=== PATIENT | female | born 1950 | race African-American/Black ===

== ENCOUNTER 2017-05-06 23:00 | Inpatient (IN) | payer MEDICARE, MEDICAID ==
[~2017-05-06] VITALS: Ht 167.6 cm; Wt 85.7 kg
[~2017-05-06 23:00] MED LIST: Bisacodyl PO; CLOP75TA33 PO; FURO40TA5 PO; Hydrochlorothiazide PO; NIFE60TA64 PO; OMEP20CA10 PO; POTA20TA82 PO; SIMV40TA2 PO
[2017-05-07] MEDS ORDERED: SODIUM CHLORIDE 0.9% 1,000 ML IV ONE (00:44)
[2017-05-07] MEDS ORDERED: ONDANSETRON HCL 4MG/2ML VIAL IV STA (00:44)
[2017-05-07] MEDS ORDERED: MORPHINE SULFATE 4 MG/ML CPJ (NOT FOR IM USE) IV STA (00:44)
[2017-05-07 01:15] LABS: EOSINOPHILS % 1.9 % (0.0-5.0); HEMATOCRIT. 26.2 % (36.0-48.0); HEMOGLOBIN. 7.9 g/dL (12.0-16.0); LYMPHOCYTES % 31.2 % (20.0-50.0); MEAN CORPUSCULAR HEMOGLOBIN 19.8 pg (28.0-32.0); MEAN PLATELET VOLUME 8.6 fl (7.4-10.4); MONOCYTES % 8.8 % (2.0-8.0); NEUTROPHILS % 57.1 % (40.0-76.0); PLATELET 138 x1000/uL (130-400); RED BLOOD CELL COUNT 3.97 mill/uL (4.2-5.4); RED CELL DISTRIBUTION WIDTH 18.8 % (11.6-14.6)
[2017-05-07 01:24] LABS: CARBON DIOXIDE 20 mEq/L (21-32); CHLORIDE 107 mEq/L (98-107)
[2017-05-07 01:28] LABS: PLATELET ESTIMATE NORMAL
[2017-05-07 02:12] LABS: CLARITY URINE CLEAR (CLEAR); COLOR URINE YELLOW (YELLOW); GLUCOSE URINE 3+ (NEGATIVE); KETONES URINE NEGATIVE (NEGATIVE); LEUKOCYTE ESTERASE URINE TRACE (NEGATIVE); NITRITE URINE NEGATIVE (NEGATIVE); OCCULT BLOOD URINE NEGATIVE (NEGATIVE); PH URINE 5.5 (4.5-8.0); PROTEIN URINE NEGATIVE (NEGATIVE); UROBILINOGEN URINE 0.2 E.U./dL (0.2-1.0)
[2017-05-07] MEDS ORDERED: ONDANSETRON HCL 4MG/2ML VIAL IV ONE ×2 (03:30→08:30)
[2017-05-07] MEDS ORDERED: MORPHINE SULFATE 4 MG/ML CPJ (NOT FOR IM USE) IV ONE ×2 (03:30→08:30)
[2017-05-07] MEDS ORDERED: DEXTROSE 50% WATER 50ML SYRINGE IV ONE (07:45)
[2017-05-07] MEDS ORDERED: DEXT 5% WATER 500 ML IV ONE (07:45)
[2017-05-07 09:45] VITALS: BP 138/68
[2017-05-07] MEDS ORDERED: DIPH25CA83 PO (10:11)
[2017-05-07] MEDS ORDERED: ACETAMINOPHEN 325MG TABLET PO PRN (10:15)
[2017-05-07 11:52] LABS: BASOPHILS % 0.7 % (0.0-2.0); EOSINOPHILS % 1.5 % (0.0-5.0); HEMATOCRIT. 27.5 % (36.0-48.0); HEMOGLOBIN. 8.3 g/dL (12.0-16.0); LYMPHOCYTES % 32.9 % (20.0-50.0); MEAN CORPUSCULAR HEMOGLOBIN 19.8 pg (28.0-32.0); MEAN CORPUSCULAR VOLUME 65.7 fL (81.0-99.0); MEAN PLATELET VOLUME 8.5 fl (7.4-10.4); MONOCYTES % 8.6 % (2.0-8.0); NEUTROPHILS % 56.3 % (40.0-76.0); PLATELET 140 x1000/uL (130-400); RED BLOOD CELL COUNT 4.18 mill/uL (4.2-5.4); RED CELL DISTRIBUTION WIDTH 19.1 % (11.6-14.6)
[2017-05-07 12:00] VITALS: BP 139/72
[2017-05-07 12:08] LABS: CARBON DIOXIDE 22 mEq/L (21-32); CHLORIDE 109 mEq/L (98-107); HDL CHOLESTEROL 43 mg/dL (40-59); LDL CHOLESTEROL 73 mg/dL (5-100)
[2017-05-07] MEDS ORDERED: DEXTROSE 50% WATER 50ML SYRINGE IV PRN (13:15)
[2017-05-07 16:00] VITALS: BP 148/80
[2017-05-07] MEDS: MORPHINE SULFATE 2 MG/ML CPJ (NOT FOR IM USE) IV PRN ×2 (16:34→21:51)
[2017-05-07] MEDS: BLOOD SUGAR DIAGNOSTIC STRIP TEST SCH ×2 (16:41→21:43)
[2017-05-07] MEDS: INSULIN LISPRO 100 UNITS/ML SUBCUT SCH ×2 (16:54→22:00)
[2017-05-07 20:00] VITALS: BP 137/98
[2017-05-07] MEDS: SODIUM CHLORIDE 0.9% 1,000 ML IV SCH (21:52)
[2017-05-08] VITALS: BP 162/89
[2017-05-08] MEDS: ONDANSETRON HCL 4MG/2ML VIAL IV PRN ×2 (01:50→19:37)
[2017-05-08] MEDS: MORPHINE SULFATE 2 MG/ML CPJ (NOT FOR IM USE) IV PRN ×3 (01:52→19:38)
[2017-05-08 04:00] VITALS: BP 153/72
[2017-05-08] MEDS: BLOOD SUGAR DIAGNOSTIC STRIP TEST SCH ×4 (06:08→21:00)
[2017-05-08] MEDS: INSULIN LISPRO 100 UNITS/ML SUBCUT SCH ×5 (07:50→22:19)
[2017-05-08 07:57] LABS: HEMOGLOBIN. 8.3 g/dL (12.0-16.0); MEAN CORPUSCULAR HEMOGLOBIN 19.5 pg (28.0-32.0); MEAN CORPUSCULAR VOLUME 65.9 fL (81.0-99.0); MEAN PLATELET VOLUME 8.5 fl (7.4-10.4); PLATELET 126 x1000/uL (130-400); RED BLOOD CELL COUNT 4.25 mill/uL (4.2-5.4); RED CELL DISTRIBUTION WIDTH 18.6 % (11.6-14.6)
[2017-05-08 08:00] VITALS: BP 114/67
[2017-05-08 08:23] LABS: AMYLASE 98 IU/L (25-115); CARBON DIOXIDE 23 mEq/L (21-32); CHLORIDE 107 mEq/L (98-107); TOTAL IRON BINDING CAPACITY 470 ug/dL (250-450)
[2017-05-08 09:11] LABS: VITAMIN B12 SERUM 1401 pg/mL (211-911)
[2017-05-08 09:15] LABS: FOLIC ACID (FOLATE) SERUM > 20.00 ng/mL (>5.38)
[2017-05-08] MEDS ORDERED: MORPHINE SULFATE 10 MG/ML CPJ IM PRN (09:45)
[2017-05-08] MEDS: POTASSIUM CHLORIDE 20MEQ TABLET SR PO SCH (10:03)
[2017-05-08] MEDS: SODIUM CHLORIDE 0.9% 1,000 ML IV SCH (10:03)
[2017-05-08] MEDS: NIFEDIPINE XL 60MG TAB PO SCH (10:04)
[2017-05-08] MEDS: FUROSEMIDE 40MG TABLET PO SCH (10:04)
[2017-05-08] MEDS ORDERED: KETOROLAC 15MG/ML VIAL IM PRN (10:15)
[2017-05-08 11:44] LABS: FERRITIN 16 ng/mL (10-291)
[2017-05-08 12:00] VITALS: BP 167/88
[2017-05-08 12:22] LABS: PLATELET ESTIMATE SLIGHTLY DECREASED
[2017-05-08 16:00] VITALS: BP 126/78
[2017-05-08 20:00] VITALS: BP_SYST 144; BP_SYST 148; BP_DIAS 55; BP_DIAS 74
[2017-05-09] VITALS: BP 148/74
[2017-05-09] MEDS: MORPHINE SULFATE 2 MG/ML CPJ (NOT FOR IM USE) IV PRN ×5 (00:05→21:48)
[2017-05-09 04:00] VITALS: BP 138/57
[2017-05-09] MEDS: ONDANSETRON HCL 4MG/2ML VIAL IV PRN ×4 (05:24→21:47)
[2017-05-09] MEDS: SODIUM CHLORIDE 0.9% 1,000 ML IV SCH ×2 (05:47→14:39)
[2017-05-09 06:51] LABS: HEMATOCRIT 25.4 % (36.0-48.0); HEMOGLOBIN 7.7 g/dL (12.0-16.0)
[2017-05-09 08:00] VITALS: BP 130/84
[2017-05-09] MEDS: BLOOD SUGAR DIAGNOSTIC STRIP TEST SCH ×4 (08:10→21:38)
[2017-05-09] MEDS: INSULIN LISPRO 100 UNITS/ML SUBCUT SCH ×4 (08:53→21:51)
[2017-05-09] MEDS: POTASSIUM CHLORIDE 20MEQ TABLET SR PO SCH (08:54)
[2017-05-09] MEDS: FERROUS SULFATE 325MG TABLET PO SCH ×2 (08:54→18:30)
[2017-05-09] MEDS: FUROSEMIDE 40MG TABLET PO SCH (08:54)
[2017-05-09] MEDS: NIFEDIPINE XL 60MG TAB PO SCH (08:55)
[2017-05-09 12:00] VITALS: BP 143/82
[2017-05-09] MEDS ORDERED: LACTULOSE 20G/30ML UDC PO NR (12:30)
[2017-05-09 16:00] VITALS: BP 113/65
[2017-05-09 21:15] VITALS: BP 136/81
[2017-05-10] VITALS: BP 140/77
[2017-05-10] MEDS: ONDANSETRON HCL 4MG/2ML VIAL IV PRN ×3 (03:15→13:24)
[2017-05-10] MEDS: MORPHINE SULFATE 2 MG/ML CPJ (NOT FOR IM USE) IV PRN ×4 (03:18→20:05)
[2017-05-10 04:00] VITALS: BP 140/73
[2017-05-10] MEDS: SODIUM CHLORIDE 0.9% 1,000 ML IV SCH (05:17)
[2017-05-10] MEDS: BLOOD SUGAR DIAGNOSTIC STRIP TEST SCH ×4 (06:49→20:35)
[2017-05-10] MEDS: INSULIN LISPRO 100 UNITS/ML SUBCUT SCH ×4 (08:53→21:13)
[2017-05-10] MEDS: POTASSIUM CHLORIDE 20MEQ TABLET SR PO SCH (08:55)
[2017-05-10] MEDS: FUROSEMIDE 40MG TABLET PO SCH (08:55)
[2017-05-10] MEDS: NIFEDIPINE XL 60MG TAB PO SCH (08:55)
[2017-05-10] MEDS: FERROUS SULFATE 325MG TABLET PO SCH ×2 (08:56→18:09)
[2017-05-10 12:00] VITALS: BP 120/61
[2017-05-10 16:00] VITALS: BP 142/80
[2017-05-10 20:00] VITALS: BP 123/67
[2017-05-11] VITALS: BP 146/77
[2017-05-11] MEDS: MORPHINE SULFATE 2 MG/ML CPJ (NOT FOR IM USE) IV PRN ×3 (02:12→14:59)
[2017-05-11 04:00] VITALS: BP 137/96
[2017-05-11] MEDS: SODIUM CHLORIDE 0.9% 1,000 ML IV SCH (06:21)
[2017-05-11] MEDS: BLOOD SUGAR DIAGNOSTIC STRIP TEST SCH ×2 (06:21→12:51)
[2017-05-11 08:00] VITALS: BP 125/80
[2017-05-11] MEDS: FERROUS SULFATE 325MG TABLET PO SCH (08:25)
[2017-05-11] MEDS: FUROSEMIDE 40MG TABLET PO SCH (08:26)
[2017-05-11] MEDS: POTASSIUM CHLORIDE 20MEQ TABLET SR PO SCH (08:26)
[2017-05-11] MEDS: NIFEDIPINE XL 60MG TAB PO SCH (08:26)
[2017-05-11] MEDS: INSULIN LISPRO 100 UNITS/ML SUBCUT SCH ×2 (08:29→12:55)
[2017-05-11 12:00] VITALS: BP 137/79
[2017-05-11 12:11] VITALS: BP 137/79
[2017-05-11] MEDS ORDERED: NA PHOS,M-B/NA PHOS,DI-BA ENEMA 118ML PR PRN (14:00)
[2017-05-11 14:59] VITALS: BP 137/79
== END 2017-05-11 15:30 | disposition home or self-care (01) | DRG 438 ==
LOC: ER 23:00 → EDBEDREQ 05-07 03:20 → 6EST 05-07 04:35 → EDBEDREQ 05-07 05:09 → ENRESERV 05-07 07:01
PROVIDERS: ADMIT Internal Medicine; ATTEND Internal Medicine
PROC: 05H333Z Insertion of Infusion Device into Right Innominate Vein, Percutaneous Approach (ICD-10-PCS; principal; 2017-05-10)
DX: K85.90 Acute pancreatitis without necrosis or infection, unspecified (principal); E43 Unspecified severe protein-calorie malnutrition; G81.91 Hemiplegia, unspecified affecting right dominant side; K43.9 Ventral hernia without obstruction or gangrene; I10 Essential (primary) hypertension; E11.9 Type 2 diabetes mellitus without complications; B19.20 Unspecified viral hepatitis C without hepatic coma; D63.8 Anemia in other chronic diseases classified elsewhere; D50.9 Iron deficiency anemia, unspecified; N32.89 Other specified disorders of bladder; J44.9 Chronic obstructive pulmonary disease, unspecified; Z79.02 Long term (current) use of antithrombotics/antiplatelets; Z79.899 Other long term (current) drug therapy; Z88.6 Allergy status to analgesic agent; Z88.8 Allergy status to other drugs, medicaments and biological substances; Z96.659 Presence of unspecified artificial knee joint; Z90.49 Acquired absence of other specified parts of digestive tract; Z90.710 Acquired absence of both cervix and uterus; F17.200 Nicotine dependence, unspecified, uncomplicated; Z82.49 Family history of ischemic heart disease and other diseases of the circulatory system; Z86.73 Personal history of transient ischemic attack (TIA), and cerebral infarction without residual deficits; I25.10 Atherosclerotic heart disease of native coronary artery without angina pectoris
CPT/HCPCS: 36415; 36569; 71010; 74000; 74176; 76937; 77001; 80048; 80053; 80061; 81001; 82150; 82607; 82728; 82746; 82962; 83540; 83550; 83615; 83690; 84443; 85014; 85018; 85025; 85044; 85651; 86850; 86870; 86900; 86920; 93970; 96361; 96374; 96375; 96376; 99285; C1725; C1893; J1815; J1885; J2270; J2405; J7030; J7040; J7060

== ENCOUNTER 2018-01-16 02:43 | Emergency (ER) | payer MEDICARE, MEDICAID ==
[~2018-01-16] VITALS: Ht 157.5 cm; Wt 91.0 kg
[~2018-01-16 02:43] MED LIST changes: +DIPH25CA83 PO
[2018-01-16] MEDS ORDERED: HYDROCODONE/ACETAMINOPHEN 10/325MG TABLET PO ONE (03:00)
[2018-01-16 03:14] VITALS: BP 144/77
== END 2018-01-16 04:40 | disposition home or self-care (01) ==
LOC: ER 02:43
DX: M79.671 Pain in right foot (principal); M79.672 Pain in left foot; E11.9 Type 2 diabetes mellitus without complications; Z86.73 Personal history of transient ischemic attack (TIA), and cerebral infarction without residual deficits; Z88.5 Allergy status to narcotic agent; Z90.710 Acquired absence of both cervix and uterus; Z96.659 Presence of unspecified artificial knee joint; Z88.6 Allergy status to analgesic agent
CPT/HCPCS: 73630; 99284

== ENCOUNTER 2018-09-27 05:41 | Emergency (ER) | payer MEDICARE, MEDICAID ==
[~2018-09-27] VITALS: Ht 165.1 cm; Wt 84.0 kg
[2018-09-27] MEDS ORDERED: ONDANSETRON HCL 4MG/2ML INJ IV STA (06:28)
[2018-09-27] MEDS ORDERED: FAMOTIDINE 20MG/2ML VIAL IV STA (06:28)
[2018-09-27] MEDS ORDERED: SODIUM CHLORIDE 0.9% 1,000 ML IV ONE (06:28)
[2018-09-27] MEDS ORDERED: MORPHINE SULFATE 4 MG/ML CPJ (NOT FOR IM USE) IV STA (06:28)
[2018-09-27 08:06] LABS: HEMATOCRIT. 26.2 % (36.0-48.0); HEMOGLOBIN. 8.1 g/dL (12.0-16.0); MEAN CORPUSCULAR HEMOGLOBIN 22.3 pg (28.0-32.0); MEAN CORPUSCULAR VOLUME 72.2 fL (81.0-99.0); MEAN PLATELET VOLUME 7.3 fl (7.4-10.4); PLATELET 201 x1000/uL (130-400); RED BLOOD CELL COUNT 3.63 mill/uL (4.2-5.4); RED CELL DISTRIBUTION WIDTH 20.3 % (11.6-14.6)
[2018-09-27 08:09] LABS: CHLORIDE 104 mEq/L (98-107)
[2018-09-27 08:12] LABS: PROTHROMBIN TIME 10.2 sec (9.1-11.1)
[2018-09-27 08:59] LABS: PLATELET ESTIMATE NORMAL
[2018-09-27 09:00] LABS: CLARITY URINE CLEAR (CLEAR); COLOR URINE YELLOW (YELLOW); KETONES URINE NEGATIVE (NEGATIVE); LEUKOCYTE ESTERASE URINE TRACE (NEGATIVE); NITRITE URINE NEGATIVE (NEGATIVE); OCCULT BLOOD URINE NEGATIVE (NEGATIVE); PH URINE 5.5 (4.5-8.0); PROTEIN URINE NEGATIVE (NEGATIVE); SPECIFIC GRAVITY URINE 1.008 (1.005-1.030); UROBILINOGEN URINE 0.2 E.U./dL (0.2-1.0)
[2018-09-27] MEDS ORDERED: OXYCODONE HCL/ACETAMINOPHEN 5/325MG TABLET PO ONE (09:15)
[2018-09-27 09:21] VITALS: BP 168/109
== END 2018-09-27 09:41 | disposition home or self-care (01) ==
LOC: ER 05:41
DX: R10.9 Unspecified abdominal pain (principal); D64.9 Anemia, unspecified; E11.9 Type 2 diabetes mellitus without complications; I10 Essential (primary) hypertension; Z86.73 Personal history of transient ischemic attack (TIA), and cerebral infarction without residual deficits; Z90.710 Acquired absence of both cervix and uterus; Z98.890 Other specified postprocedural states; Z88.5 Allergy status to narcotic agent; Z79.899 Other long term (current) drug therapy
CPT/HCPCS: 36415; 74176; 80053; 81003; 83690; 85025; 85610; 96374; 96375; 99284; J2270; J2405; J3490; J7030

== ENCOUNTER 2018-12-20 07:27 | Emergency (ER) | payer MEDICARE, OTHER ==
[~2018-12-20] VITALS: Ht 162.6 cm; Wt 73.0 kg
[2018-12-20 10:22] LABS: EOSINOPHILS % 0.2 % (0.0-5.0); HEMATOCRIT. 28.7 % (36.0-48.0); HEMOGLOBIN. 8.1 g/dL (12.0-16.0); LYMPHOCYTES % 65.4 % (20.0-50.0); MEAN CORPUSCULAR HEMOGLOBIN 17.9 pg (28.0-32.0); MEAN CORPUSCULAR VOLUME 63.7 fL (81.0-99.0); MEAN PLATELET VOLUME 8.6 fl (7.4-10.4); MONOCYTES % 3.1 % (2.0-8.0); NEUTROPHILS % 30.3 % (40.0-76.0); PLATELET 241 x1000/uL (130-400); RED BLOOD CELL COUNT 4.51 mill/uL (4.2-5.4); RED CELL DISTRIBUTION WIDTH 19.6 % (11.6-14.6)
[2018-12-20 10:24] LABS: CHLORIDE 102 mEq/L (98-107); INR 1.1; PROTHROMBIN TIME 10.6 sec (9.1-11.1)
[2018-12-20 10:56] LABS: PLATELET ESTIMATE NORMAL
[2018-12-20] MEDS ORDERED: FAMOTIDINE 20MG/2ML VIAL IV STA (11:50)
[2018-12-20] MEDS ORDERED: ONDANSETRON HCL 4MG/2ML INJ IV STA (11:50)
[2018-12-20] MEDS ORDERED: NIFEDIPINE XL 60MG TAB PO ONE (12:00)
[2018-12-20] MEDS ORDERED: ONDANSETRON 4MG ODT PO ONE (13:30)
[2018-12-20] MEDS ORDERED: MORPHINE SULFATE 10 MG/ML CPJ IM ONE (13:30)
[2018-12-20 15:47] LABS: CLARITY URINE CLEAR (CLEAR); COLOR URINE YELLOW (YELLOW); KETONES URINE NEGATIVE (NEGATIVE); LEUKOCYTE ESTERASE URINE NEGATIVE (NEGATIVE); NITRITE URINE NEGATIVE (NEGATIVE); OCCULT BLOOD URINE NEGATIVE (NEGATIVE); PROTEIN URINE 1+ (NEGATIVE); SPECIFIC GRAVITY URINE 1.013 (1.005-1.030); UROBILINOGEN URINE 0.2 E.U./dL (0.2-1.0)
[2018-12-20 15:58] LABS: *AMPHETAMINES SCREEN URINE NEGATIVE (NEGATIVE); *BARBITURATES SCREEN URINE NEGATIVE (NEGATIVE); *BENZODIAZEPINES SCREEN URINE NEGATIVE (NEGATIVE); *COCAINE SCREEN URINE NEGATIVE (NEGATIVE); METHADONE URINE SCREEN NEGATIVE (NEGATIVE); OPIATES URINE SCREEN PRESUMTIVE POSITIVE (NEGATIVE)
[2018-12-20 15:59] LABS: CANNABINOID URINE SCREEN NEGATIVE (NEGATIVE); PHENCYCLIDINE URINE SCREEN NEGATIVE (NEGATIVE)
[2018-12-20 16:30] VITALS: BP 170/86
== END 2018-12-20 16:32 | disposition home or self-care (01) ==
LOC: ER 07:27
DX: R10.0 Acute abdomen (principal); R11.2 Nausea with vomiting, unspecified; E87.1 Hypo-osmolality and hyponatremia; E11.65 Type 2 diabetes mellitus with hyperglycemia; I13.10 Hypertensive heart and chronic kidney disease without heart failure, with stage 1 through stage 4 chronic kidney disease, or unspecified chronic kidney disease; N18.9 Chronic kidney disease, unspecified; E11.22 Type 2 diabetes mellitus with diabetic chronic kidney disease; Z79.899 Other long term (current) drug therapy
CPT/HCPCS: 36415; 71045; 74176; 80053; 80305; 81003; 83690; 85025; 85610; 93005; 96372; 99284; J2270; Q0162

== ENCOUNTER 2018-12-30 10:42 | Emergency (ER) | payer MEDICARE, OTHER ==
[~2018-12-30] VITALS: Ht 162.6 cm; Wt 72.6 kg
[2018-12-30] MEDS ORDERED: FAMOTIDINE 20MG/2ML VIAL IV STA (11:36)
[2018-12-30] MEDS ORDERED: KETOROLAC 30MG/ML VIAL IV STA (11:36)
[2018-12-30] MEDS ORDERED: SODIUM CHLORIDE 0.9% 1,000 ML IV ONE (11:36)
[2018-12-30] MEDS ORDERED: ONDANSETRON HCL 4MG/2ML INJ IV STA ×2 (11:36→13:47)
[2018-12-30 12:19] LABS: HEMATOCRIT. 29.5 % (36.0-48.0); HEMOGLOBIN. 8.4 g/dL (12.0-16.0); MEAN CORPUSCULAR HEMOGLOBIN 18.1 pg (28.0-32.0); MEAN CORPUSCULAR VOLUME 63.4 fL (81.0-99.0); MEAN PLATELET VOLUME 8.5 fl (7.4-10.4); PLATELET 255 x1000/uL (130-400); RED BLOOD CELL COUNT 4.65 mill/uL (4.2-5.4); RED CELL DISTRIBUTION WIDTH 20.3 % (11.6-14.6)
[2018-12-30 12:23] LABS: CHLORIDE 103 mEq/L (98-107)
[2018-12-30 12:39] LABS: PLATELET ESTIMATE NORMAL
[2018-12-30 12:44] LABS: PARTIAL THROMBOPLASTIN TIME 23.2 sec (23.4-31.0); PROTHROMBIN TIME 10.5 sec (9.1-11.1)
[2018-12-30] MEDS ORDERED: HYDRALAZINE 20MG/ML VIAL IV ONE (13:45)
[2018-12-30 13:46] LABS: CLARITY URINE CLEAR (CLEAR); COLOR URINE YELLOW (YELLOW); KETONES URINE NEGATIVE (NEGATIVE); LEUKOCYTE ESTERASE URINE NEGATIVE (NEGATIVE); NITRITE URINE NEGATIVE (NEGATIVE); OCCULT BLOOD URINE NEGATIVE (NEGATIVE); PROTEIN URINE NEGATIVE (NEGATIVE); SPECIFIC GRAVITY URINE 1.008 (1.005-1.030); UROBILINOGEN URINE 0.2 E.U./dL (0.2-1.0)
[2018-12-30] MEDS ORDERED: MORPHINE SULFATE 4 MG/ML CPJ (NOT FOR IM USE) IV STA (13:47)
[2018-12-30 16:30] VITALS: BP 155/88
== END 2018-12-30 16:43 | disposition home or self-care (01) ==
LOC: ER 10:56
DX: K42.9 Umbilical hernia without obstruction or gangrene (principal); E11.22 Type 2 diabetes mellitus with diabetic chronic kidney disease; I13.10 Hypertensive heart and chronic kidney disease without heart failure, with stage 1 through stage 4 chronic kidney disease, or unspecified chronic kidney disease; N18.9 Chronic kidney disease, unspecified; D72.819 Decreased white blood cell count, unspecified; D63.1 Anemia in chronic kidney disease; Z86.73 Personal history of transient ischemic attack (TIA), and cerebral infarction without residual deficits; Z90.710 Acquired absence of both cervix and uterus; Z88.5 Allergy status to narcotic agent
CPT/HCPCS: 36415; 71045; 74176; 80053; 81003; 83690; 85025; 85610; 85730; 93005; 96361; 96374; 96375; 99284; J0360; J1885; J2270; J2405; J3490; J7030

== ENCOUNTER 2020-10-10 02:21 | Emergency (ER) | payer MEDICARE, MEDICAID ==
[~2020-10-10 02:21] MED LIST changes: -OMEP20CA10 PO; +OMEP20CA14 PO
== END 2020-10-10 03:30 | disposition left against medical advice (07) ==
LOC: ER 02:21
DX: I13.0 Hypertensive heart and chronic kidney disease with heart failure and stage 1 through stage 4 chronic kidney disease, or unspecified chronic kidney disease (principal); I50.9 Heart failure, unspecified; N18.9 Chronic kidney disease, unspecified; E11.22 Type 2 diabetes mellitus with diabetic chronic kidney disease; I25.10 Atherosclerotic heart disease of native coronary artery without angina pectoris; Z79.899 Other long term (current) drug therapy; Z88.8 Allergy status to other drugs, medicaments and biological substances; Z53.21 Procedure and treatment not carried out due to patient leaving prior to being seen by health care provider